=== PATIENT | female | born 1965 | race Caucasian/White ===

== ENCOUNTER → 2023-03-27 | Outpatient (CLI) | payer OTHER, SELFPAY ==
--- OUTSIDE RECORDS SUMMARY | 2023-03-27 07:25 | XMS RPT_ITS | CCD ---
Author Name Unknown Address [address] [place] [address] Organization [facility] Care Team Providers Care Auto Mechanic Apprentice Name Role Phone Lowell ISBELL, Jovi Gaitan Primary Care Provider JOVI ETIENNE Primary Care Unavailable ELIZABETH SOLANO MD, Jovi Gaitan Primary Care Provider Allergies Allergy Classification Reported Allergen(s) Allergy Type Date of Onset Reaction(s) Facility (4 sources) cefdinir; Translations: [CEFDINIR] Drug Allergy 04-05-2011 [facility] Work Phone: (4 sources) Ibuprofen; Translations: [IBUPROFEN] Drug Allergy 11-12-2004 [facility] Work Phone: Medications Completed/Discontinued Medications Medication Drug Class(es) Dates Sig (Normalized) Sig (Original) Lactobacillus acidophilus (3 sources) Lactobacillus acidophilus (PROBIOTIC ORAL) Take by mouth. 0 Active Problems Problem Classification Problem Date Documented Da te Episodic/Chronic Menopausal disorders (1 source) Menopausal flushing; Translations: [Menopausal and female climacteric states] Chronic Other nutritional; endocrine; and metabolic disorders (1 source) Obesity; Translations: [Obesity, unspecified] Chronic Other nutritional; endocrine; and metabolic disorders (3 sources) Obese class I; Translations: [Obesity, unspecified] Onset: 09-09-2021 09-09-2021 Chronic Other screening for suspected conditions (not mental disorders or infectious disease) (6 sources) Breast finding ; Translations: [Inconclusive mammogram] Onset: 09-22-2022 Episodic Results Test Name Value Interpretation Reference Range Facil ity Vital Signs Date Time Vital Sign Value Performing Clinician Faci lity 09-09-2021 07:46-0400 Body height 165.1 cm Elizabeth Solano APRN.CNP Work Phone: [facility] 09-09-2021 07:46-0400 Body weight 86.73 kg Elizabeth Solano APRN.CNP Work Phone: [facility] 09-09-2021 07:46-0400 Diastolic blood pressure 64 mm[Hg] Elizabeth Solano APRN.SPECIALTY TRIMMER Work Phone: [facility] 09-09-2021 07:46-0400 Systolic blood pressure 100 mm[Hg] Elizabeth Solano APRN.SPECIALTY TRIMMER Work Phone: [facility] Encounters Encounter Date Encounter Type Care Provider Facility Start: 09-22-2022 Documentation procedure Mammog rosalinda Coordinator [facility] Start: 09-22-2022 Letter encounter Mammography Coordinator [facility] Department Start: 09-22-2022 End: 09-22-2022 ambulatory JOVI ETIENNE Facility:[facility] Start: 09-22-2022 End: 09-22-2022 Subsequent hospital visit by physician Screen Mammo [facility] Mammogram Procedures Date Procedure Procedure Detail Performing Clinician Start: 09-22-2022 End: 09-22-2022 Mammography Elizabeth Solano APRN.CNP Work Phone: Start: 09-01-2021 Mammography Elizabeth szymanski APRN.CNP Work Phone: Plan of Treatment Date Care Activity Detail Author Start: 09-23-2023 Mammography [facility] Start: 10-28-2022 Influenza vaccination [facility] Start: 09-01-2022 Mammography MAMMOGRAM [facility] Start: 02-27-2022 DEPRESSION ASSESSMENT DEPRESSION ASSESSMENT [facility] Start: 10-28-2021 Influenza vaccination INFLUENZA (#1) [facility] Start: 2014 SHINGRIX VACCINE (1 of 2) SHINGRIX VACCINE (1 of 2) [facility] Start: 2009 COLOGUARD (FIT-DNA) COLOGUARD (FIT-DNA) [facility] Start: 2009 Colonoscopy COLONOSCOPY [facility] Start: 2009 COLORECTAL CANCER SCREENING COLORECTAL CANCER SCREENING [facility] Start: [address] COLONOGRAPHY [facility] Start: 2009 DIABETES SCREEN DIABETES SCREEN [facility] Start: 2009 Diabetes Screening Diabetes Screening [facility] Start: 2009 FECAL OCCULT BLOOD FECAL OCCULT BLOOD [facility] Start: 2009 Lipid 1996 panel - Serum or Plasma Lipid Screening [facility] Start: 2009 LIPID SCREEN LIPID SCREEN [facility] Start: 2009 SIGMOIDOSCOPY SIGMOIDOSCOPY [facility] Start: 08-01-2007 Hepatitis B Vaccine (2 of 3 - 19+ 3-dose series) Hepatitis B Vaccine (2 of 3 - 19+ 3-dose series) [facility] Start: 1983 Urine microalbumin profile [facility] Start: 1982 HEPATITIS C SCREENING HEPATITIS C SCREENING [facility] Start: 1982 HIV SCREENING HIV SCREENING [facility] Start: 1976 Adult depression screening assessment DEPRESSION SCREENING [facility] Start: 1964 COVID-19 VACCINE (#1) COVID-19 VACCINE (#1) [facility] Start: 1964 HEPATITIS B (1 of 3 - 3-dose series) HEPATITIS B (1 of 3 - 3-dose series) [facility] End: 10-09-2022 CHANDNI SCREENING W AVA CHANDNI SCREENING W AVA Radiology Routine Dense breast tissue Encounter for screening mammogram for malignant neoplasm of breast 1 Occurrences starting 09/09/2021 until 10/09/2022 [facility] Work Phone: Payers Date Payer Category Payer Unknown MMO MMO [employer] [id number] 2017-Present [phone] [address] [place] [address] PPO [id number] 2017 Unknown MMO MMO [employer] PPO [id number] 2017-Present [phone] [address] [place] [address] PPO [id number] 2017 Unknown [id number] Social History Date Type Detail Facility Start: 01-10-2012 Tobacco smoking status NHIS Ex-smoker [facility] Work Phone: End: 09-02-2008 History of tobacco use Current smoker [facility] End: 09-02-2008 History of tobacco use Cigarette Smoker [facility] Start: 09-09-2021 Alcohol intake Current drinker of alcohol (finding) [facility] Start: 11-15-2018 History SDOH Alcohol Comment Occasionally [facility] Start: 11-19-2019 History SDOH Social Connections Phone 5 [facility] Start: 11-19-2019 History SDOH Social Connections Get Together 2 [facility] Start: 11-19-2019 History SDOH Social Connections [employer] 3 [facility] Start: 11-19-2019 History SDOH Social Connections Membership 1 [facility] Start: 11-19-2019 History SDOH Physical Activity MPS 6 [facility] Start: 11-19-2019 Education 21 [facility] Start: 04-02-2008 Tobacco Comment 4 cigs per day [facility] Start: 1965 Sex Assigned At Female [facility] Start: 08-30-2021 End: 09-09-2021 Exposure to SARS-CoV-2 (event) Not sure [facility] Work Phone: Start: 01-10-2012 End: 02-03-2020 Cigarettes smoked current (pack per day) - Reported 0.5 [facility] Work Phone: Start: 01-10-2012 Tobacco use and exposure Smokeless tobacco non-user [facility] Start: 11-19-2019 End: 02-03-2020 Social connection and isolation panel [facility] Work Phone: Do you belong to any clubs or organizations such as sabianist groups, unions, fraternal or athletic groups, or school groups? Yes [facility] Work Phone: Are you now , , , , never or living with a partner? [facility] Work Phone: How hard is it for y ou to pay for the very basics like food, housing, medical care, and heating Not hard at all [facility] Work Phone: Do you feel stress - tense, restless, nervous, or anxious, or unable to sleep at night because your mind is troubled all the time - these days [OSQ] To some extent [facility] Work Phone: (I/We) worried wheth er (my/our) food would run out before (I/we) got money to buy more. Never true [facility] Work Phone: Start: 08-27-2021 Gender identity Identifies as female gender (finding) [facility] Start: 08-27-2021 Sexual orientation Heterosexual (finding) [facility] Clinical Notes 12-15-2008 to 09-22-2022 Letter - Coordinator, Mammography - 09/22/2022 2:18 PM Tia Carr Mammo Tech - 09/22/2022 7:30 AM EDTPatient InstructionsElizabeth Solano APRN.SPECIALTY TRIMMER - 09/09/2021 7:45 AM EDT Note Date & Type Note Facility 09-22-2022 Miscellaneous Notes September 26, 2022 PID: [id number] Denia Domingo [address] [place] [address] Dear Ms. Domingo, We are pleased to inform you that the results of your recent breast imaging exam on 09/22/2022 are normal. Your mammogram demonstrates that you have dense breast tissue, which could hide abnormalities. Dense breast tissue, in and of itself, is a relatively common condition. Therefore, this information is not provided to cause undue concern; rather, it is to raise your awareness and promote discussion with your health care provider regarding the presence of dense breast tissue in addition to other risk factors. Early detection of cancer is very important. We also understand recommendations regarding breast cancer screening are controversial. Please discuss with your primary care provider which strategy is best for you and whether a mammogram is right for you. Your imaging studies and report will be kept on file at [facility] as part of your permanent medical record and are available for your continuing care. Thank you for allowing us to help in meeting your health care needs. Sincerely, Dr. Overton Interpreting Radiologist [facility] (Normal over 40) documented in this encounter [facility] 09-22-2022 Note HNO ID: [id number] Author: Tia Stevenson Mammo Tech Service: ? Author Type: Cloth Picker Type: Progress Notes Filed: 09/22/2022 8:02 AM Note Text: Radiology Service Progress Note PATIENT NAME: Denia Domingo DATE OF SERVICE: September 22, 2022 TIME: 7:39 AM PATIENT IDENTITY VERIFICATION COMPLETED USING TWO (2) IDENTIFIERS: Name and Date of confirmed by patient verbally. FALL SCREENING: Has the patient had 2 falls in the last year or 1 fall with injury or currently using an Ambulatory Assistive Device (Walker, Cane, Wheelchair, Crutches, etc.)? No PATIENT GENDER DATA: Female. status: : No status: NO. PATIENT RELEVANT IMPLANT DATA REVIEWED: Not Applicable RADIOLOGY DEPARTMENT: Mammography PERIPHERAL IV DATA: Not applicable SIGNED BY: Vargas Garrett September 22, 2022 7:39 AM [facility] 09-22-2022 History of Presen t illness Narrative Radiology Service Progress Note PATIENT NAME: Denia Domingo DATE OF SERVICE: September 22, 2022 TIME: 7:39 AM PATIENT IDENTITY VERIFICATION COMPLETED USING TWO (2) IDENTIFIERS: Name and Date of confirmed by patient verbally. FALL SCREENING: Has the patient had 2 falls in the last year or 1 fall with injury or currently using an Ambulatory Assistive Device (Walker, Cane, Wheelchair, Crutches, etc.)? No PATIENT GENDER DATA: Female. status: : No status: NO. PATIENT RELEVANT IMPLANT DATA REVIEWED: Not Applicable RADIOLOGY DEPARTMENT: Mammography PERIPHERAL IV DATA: Not applicable SIGNED BY: Vargas Garrett September 22, 2022 7:39 AM documented in this encounter [facility] 09-09-2021 Instructions Elizabeth Solano APRN.[facility] - 09/09/2021 8:12 AM EDT Menopause Symptoms Not all women experiences menopause in the same way. For some, menopause can bring on an array of uncomfortable symptoms. Others may experience few if any discomforts. This information has been prepared to help you manage the most common changes associated with the midlife transition. RELIEVING HOT FLASHES * Identify and avoid your hot flash triggers. Common triggers may include stress, caffeine, alcohol, spicy foods, tight clothing, heat and cigarette smoke. * Keep the bedroom cool. Use fans during the day. Wear light layers of clothes with natural fibers. * Try deep, slow abdominal paced breathing (6 to 8 breaths per minute). Practice deep breathing for 15 minutes in the morning, 15 minutes in the evening and at the onset of hot flashes. * Exercise daily. Walking, swimming, dancing and bicycling with helmet are good choices along with yoga. * Add soy protein in the form of food (40-60 mg) to your diet daily in place of animal protein. Promensil and isoflavone tablets have NOT been shown to significantly help menopausal symptoms * Black cohosh (in the form of Remifemin) can be used for hot flashes and has been approved by [place] Commission E for only 6 months of use, however has NOT been well studied in the [place] for lobsterman effects and THERE HAVE BEEN REPORTS OF LIVER TOXICITY WITH BLACK COHOSH USE. (Avoid kava kava, valerian root and beware that most herbal products are NOT regulated in the [place] and some have been associated with liver toxicity) NOTE: HORMONE THERAPY (HT) is the MOST EFFECTIVE treatment and the only FDA approved treatment for menopausal symptoms. Any form of hormones, including 'bioidentical' hormones have risks as well as benefits. * Antidepressants like Effexor (venlaflaxine) a NSRI or Pristiq (desvenlafaxine) another agent, Neurontin (gabapentin) may help block hot flashes and all have risks and benefits like any prescription or off the shelf medicine. * Use of Bellergal is discouraged as it contains an addictive barbiturate. RELIEVING INSOMNIA * Keep the bedroom cool to prevent night sweats. Special chill pillows that are cool are available. * Avoid using sleeping pills. * Exercise daily but not right before bedtime. * Avoid caffeine and alcohol at night. * Take a warm shower at bedtime. COPING WITH MOOD SWINGS, FEARS AND DEPRESSION * Find a self-calming skill to practice, such as yoga, meditation or slow deep breathing. * Avoid tranquilizers, if possible, however prescription anti-depressants can be very effective. * Engage in a creative outlet that fosters a sense of achievement. * Stay connected with your family and community; nurture your friendships. RELIEVING PAINFUL INTERCOURSE * Try using a vaginal water-based moisturizing lotion 3 times a week (like Replens or SILK-E) or lubricant during intercourse like KY jelly or Astroglide. *Local estrogen treatments for the vagina/bladder are available as a cream, tablet or vaginal ring. HELPFUL WEB SITES www.menopause.org www.[facility].org/womenshe alth Calcium and Vitamin D Supplementation (from the National Institutes of Health Office of Dietary Supplements 2011) Calcium 1200 mg daily - 600 mg twice a day if taking supplement and Vit D 800-1000 IU daily Calcium is required by the body for blood vessel, muscle, hormone and nerve functioning. Most of the body's calcium is stored in the bones and teeth where it supports structure and function. Bone is continuously broken down and reformed. When bone breakdown exceeds formation, especially in postmenopausal women, bone loss can increase the risk of osteoporosis and fractures. In addition to low calcium intake, women who smoke, have a family history of osteoporosis, are thin, or , or who take certain medications such as cancer chemotherapy, seizure mediations and steroids are at increased risk of osteoporosis. The calcium requirements in women change with age. The National Institutes of Health (NIH) recommends: 1000mg elemental calcium for premenopausal women age 19-50 1200mg elemental calcium for postmenopausal women and all women over 50 Milk, yogurt, and cheese are rich natural sources of calcium and are the major food contributors in the [place]. For example, 8oz of milk (whole, lowfat or skim) contains about 300mg calcium, 8oz of yogurt contains 415mg. Nondairy sources include salmon and sardines and vegetables, such as English cabbage, kale, and broccoli. Foods fortified with calcium include many fruit juices, tofu and cereals. For more food calcium content information, visit http://ods.od.nih.gov/factsheets /calcium. Calcium supplements come in several different forms. Remember that the recommendations are for millgrams (mg) of elemental calcium which may be less than the total weight of the supplement. The amount of elemental calcium is required to be printed on the label. Calcium carbonate is the least expensive form. It must be taken on a full stomach to be properly absorbed. Some patients may experience gas or constipation. Calcium phosphate and calcium citrate may be taken either with or without food and tend to have less side effects but are generally more expensive. Because of its ability to neutralize stomach acid, calcium carbonate is found in some [id number] antacid products, such as Tums and Rolaids . Depending on its strength, each chewable pill or softchew provides 200 to 400 mg of elemental calcium. The percentage of calcium absorbed depends on the total amount of elemental calcium consumed at one time. Absorption is highest in doses <500mg. So a woman who takes 1,000mg/day of calcium from supplements should split the dose and take 500mg at two separate times during the day. Too much calcium can cause kidney stones, constipation, difficulty absorbing other nutrients and calcium buildup in blood vessels. Women under 50 should not exceed 2500mg/day (2000mg/day for women over 50) of calcium from food and supplements. Excessive alcohol and caffeine intake can inhibit absorption of calcium. Calcium can reduce the absorption of some medications if taken at the same time of day (bisphosphonates, thyroid medication, Phenytoin and other seizure medications, some antibiotics and iron supplements). Vitamin D promotes calcium absorption in the gut and maintains adequate blood levels of calcium and phosphate for normal bone growth and bone remodeling. Vitamin D also helps regulate cell growth as well as nerve, muscle and immune system function. Vitamin D is produced in the skin as a result of ultraviolet sunlight rays and must be altered in the liver and kidney to become its active form. Recommended intake according to the National Institutes of Health is 600 International Units (IU) for girls and women ages 1-70 and 800 IU for women over 70. Very few foods in nature contain vitamin D. The flesh of fatty fish (such as salmon, tuna, and mackerel) and fish liver oils are among the best sources. Small amounts of vitamin D are found in beef liver, cheese, mushrooms and egg yolks. Most people meet at least some of their vitamin D needs through exposure to sunlight. Season, time of day, length of day, cloud cover, smog, skin melanin content, and sunscreen are among the factors that affect UV radiation exposure and vitamin D synthesis. Despite the importance of the sun for vitamin D synthesis, it is prudent to limit exposure of skin to sunlight and avoid tanning beds. UV radiation is a carcinogen responsible for most of the estimated 1.5 million skin cancers that occur annually in the [place]. Lifetime cumulative UV damage to skin is also responsible for some age-associated dryness and other cosmetic changes. In supplements and fortified foods, vitamin D is available in two forms, D2 (ergocalciferol) and D3 (cholecalciferol). The two are equivalent at normal supplement doses. For women who require high supplement doses because of vitamin D deficiency, D3 may work better to raise blood levels. Some medications can prevent proper absorption of Vitamin D. These include laxatives, corticosteroids like prednisone, the seizure drugs phenobarbital and phenytoin, the weight-loss drug orlistat ( Xenical and AlliTM) and the cholesterol-lowering drug cholestyramine (Questran , LoCholest , and Prevalite ). Talk to your doctor about adjusting your recommended daily vitamin D dosage if you take these medications. You should not exceed 4000 mg of vitamin D supplementation daily unless specifically prescribed by your doctor. documented in this encounter [facility] 09-09-2021 History of Presen t illness Narrative Sofie is a 56 year old who presents for an annual gynecologic exam without complaints. Did not feel well and had nightmares with Lexapro trial for hot flashes. Takes one Advil PM at bedtime. Frustrated with weight - has gained 5 lbs in last visit 2 years ago and has increased size of belly. Postmenopausal: TVH - ovaries remain HRT use: No. History of abnormal pap: No Last mammogram: 2021 normal History of abnormal mammogram: No Sexually active: No Hot flashes: Yes Trigger if she eats too much sugar. Night sweats: Yes, 3-4/week Nutrition: Plexxus in the morning, tries to eat healthy diet Activity: not much , tries to walk Documentation from previous visit of 11/19/2019 was copied and pasted, documentation has been reviewed and edited as necessary for today's visit. OB History T2 L2 SAB0 IAB0 Ectopic0 Multiple0 Live Births0 Radio Interference Investigator History LMP: 08/29/2008, Hysterectomy Age at Menarche: Age at First : Age at Menopause: Radio Interference Investigator History Comments: Sexual Activity: Not Currently; Male Contraception: PAST MEDICAL HISTORY Diagnosis Date Excessive or frequent menstruation Heavy periods PAST SURGICAL HISTORY Procedure Laterality Date PAST SURGICAL HISTORY OF RIGHT BREAST LYMPH NODES REMOVED VAGINAL HYSTERECTOMY UTERUS 250 GM/< 09/02/08 TVH for metromenorrhagia FAMILY HISTORY Problem Relation Age of Onset Bipolar disorder Mother Diabetes Mother Borderline other (Rheumatoid Arthritis) Mother other (IBS) Mother other (Crohn's Disease) Mother Coronary Artery Disease Father other (Cancer, lungs) Father smoker No Known Problems Brother Coronary Artery Disease Paternal Grandmother Coronary Artery Disease Paternal Grandfather No Known Problems Daughter No Known Problems Son SOCIAL HISTORY Social History Tobacco Use Smoking status: Former Smoker Packs/day: 0.50 Years: 1.00 Pack years: 0.50 Types: Cigarettes Quit date: 09/02/2008 Years since quittin.0 Smokeless tobacco: Never Used Tobacco comment: 4 cigs per day Vaping Use Vaping Use: Never used Substance Use Topics Alcohol use: Yes Comment: Occasionally Drug use: No REVIEW OF SYSTEMS Abdomen: No abdominal pain, nausea, vomiting, diarrhea, or constipation. No bloating, early satiety, indigestion, or increased flatulence. Bladder: No dysuria, gross hematuria, urinary frequency, urinary urgency, or incontinence Breast: No breast lumps, nipple d/c, overlying skin changes, redness or skin retraction Allergies and current medication updated:Yes EXAM: BP 100/64 Ht 5' 5 (1.65m) Wt 191 lb 3.2 oz (86.7kg) LMP 08/29/2008 BMI 31.82 kg/(m^2). GENERAL: pleasant, female in no apparent distress HEENT: Normocephalic, atraumatic, mucus membranes moist and no lesions NECK: Supple, full range of motion, no adenopathy and thyroid normal DERMATOLOGY: Normal, without lesions, non-icteric and non-hirsute BREAST: soft, non-tender, symmetric, no dominant mass, normal nipple-areolar complex, no lymphadenopathy and no nipple discharge CHEST: Normal inspiratory effort ABDOMEN: soft, non-tender and no masses PELVIC: external genitalia normal, normal Bartholin's glands, urethra, [place]'s glands, no vulvar lesions, physiologic discharge present, normal appearing perineal body and perianal region, cervix surgically absent. Visible green suture per her usual. BIMANUAL: no adnexal masses, non-tender and uterus surgically absent RECTOVAGINAL: deferred. NEURO: alert and oriented x3,exam grossly non-focal EXTREMITIES: normal ASSESSMENT/PLAN: 1) Health maintenance: Pap/HPV screening no longer needed Mammogram ordered Mammogram up to date Nutrition, exercise and routine health maintenance exams reviewed. Calcium/Vitamin D supplementation information provided. Colon cancer screening: Cologuard up to date Hot flashes - discussed options. Tried escitalopram but had nightmares. Not interested in HRT. Given written information for management. 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 10/12/2015 Nontraumatic rupture of othe r tendons of foot and ankle 12/15/2008 10/12/2015 Sprain of ankle, unspecified site 12/01/2008 10/12/2015 Other enthesopathy of ankle and tarsus 12/01/2008 10/12/2015 Calcaneal spur 12/01/2008 10/12/2015 Polyp of corpus uteri 04/02/20082008 Metrorrhagia 04/02/2008 10/17/2008 Excessive or frequent menstruation 04/02/2008 10/17/2008 Pain in joint, forearm 03/23/200710/11 documented as of this encounter (statuses as of 09/27/2022) [facility]2009 History of Past illness Narrative* Problem Noted Date Diagnosed Date Resolved Date Plantar fascial 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 10/12/2015 Nontraumatic rupture of othe r tendons of foot and ankle 12/15/2008 10/12/2015 Sprain of ankle, unspecified site 12/01/2008 10/12/2015 Other enthesopathy of ankle and tarsus 12/01/2008 10/12/2015 Calcaneal spur 12/01/2008 10/12/2015 Polyp of corpus uteri 04/02/20082008 Metrorrhagia 04/02/2008 10/17/2008 Excessive or frequent menstruation 04/02/2008 10/17/2008 Pain in joint, forearm 03/23/200710/11 documented as of this encounter (statuses as of 01/01/2023) [facility] note* Diagnosis Encounter for gynecological examination (general) (routine) without abnormal findings- Primary Hot flashes, menopausal Symptomatic menopausal or female climacteric states Dense breast tissue Encounter for screening mammogram for malignant neoplasm of breast Other screening mammogram Obesity without serious comorbidity, unspecified classification, unspecified obesity type documented in this encounter [facility] note* Diagnosis Dense breast tissue Encounter for screening mammogram for malignant neoplasm of breast Other screening mammogram documented in this encounter [facility] for referral (narrative)* Diagnostic Procedure Only (Routine) - Pending Review Specialty Diagnoses / Procedures Referred By Damaris rawls Referred To Contact [facility] Diagnoses Dense breast tissue Encounter for screening mammogram for malignant neoplasm of breast Procedures CHANDNI SCREENING W AVA SCREENING DIGITAL BREAST TOMOSYNTHESIS BI SCREENING MAMMOGRAPHY BI 2-VIEW BREAST INC Elizabeth Kingsley APRN.CNP [address] [place] [address] [facility] [address] [place] [address] Referral ID Status Reason Start Date Expiration Date Visits Requested Visits Authorized [id number] Pending Review Auto-Generat ed Referral 09/09/2021 10/09/2022 1 1 [facility] for referral (narrative)* Diagnostic Procedure Only (Routine) - Closed Specialty Diagnoses / Procedures Referred By Damaris rawls Referred To Contact [facility] Diagnoses Dense breast tissue Encounter for screening mammogram for malignant neoplasm of breast Procedures CHANDNI SCREENING W AVA SCREENING DIGITAL BREAST TOMOSYNTHESIS BI SCREENING MAMMOGRAPHY BI 2-VIEW BREAST INC Elizabeth Kingsley APRN.CNP [address] [place] [address] [facility] [address] [place] [address] Referral ID Status Reason Start Date Expiration Date V isits Requested Visits Authorized [id number] Closed Auto-Generate d Referral 09/09/2021 10/09/2022 1 1 [facility]* Diagnostic Procedure Only (Routine) - Closed Specialty Diagnoses / Procedures Referred By Damaris rawls Referred To Contact [facility] Diagnoses Dense breast tissue Encounter for screening mammogram for malignant neoplasm of breast Procedures CHANDNI SCREENING W AVA SCREENING DIGITAL BREAST TOMOSYNTHESIS BI SCREENING MAMMOGRAPHY BI 2-VIEW BREAST INC Elizabeth Kingsley APRN.SPECIALTY TRIMMER [address] [place] [address] [facility] [address] [place] [address] Referral ID Status Reason Start Date Expiration Date V isits Requested Visits Authorized [id number] Closed Auto-Generate d Referral 09/09/2021 10/09/2022 1 1 [facility] Summary Purpose Family History No Family History Records Found Advance Directives No Advanced Directives Records Found Additional Source Comments Source Comments (unrecognize d section and content) In the event this informatio n is protected by the Federal Confidentiality of Alcohol and Drug Abuse Patient Records regulations: The Federal rules restrict any use of the information to criminally investigate or prosecute any alcohol or drug abuse patient.[facility] event this information is protected by the Federal Confidentiality of Alcohol and Drug Abuse Patient Records regulations: The Federal rules restrict any use of the information to criminally investigate or prosecute any alcohol or drug abuse patient.[facility] event this information is protected by the Federal Confidentiality of Alcohol and Drug Abuse Patient Records regulations: The Federal rules restrict any use of the information to criminally investigate or prosecute any alcohol or drug abuse patient.[facility] Reason for Visit (unrecogniz ed section and content) Care Teams (unrecognized sec tion and content) Auto Mechanic Apprentice Relationship Specialty Start Date End Date Jovi Etienne MD PCP - General 01/14/09 Auto Mechanic Apprentice Relationship Specialty Start Date End Date Jovi Etienne MD PCP - General 01/14/09 INFORMATION SOURCE (unrecogn ized section and content) FOR RECORDS PERTAINING TO PATIENTS WHO ARE OR HAVE BEEN ENROLLED IN A CHEMICAL DEPENDENCY/SUBSTANCEABUSE PROGRAM, SOME INFORMATION MAY BE OMITTED. This clinical summary was aggregated from multiple sources. Caution should be exercised in using it in the provision of clinical care. This summary normalizes information from multiple sources, and as a consequence, information in this document may materially change the coding, format and clinical context of patient data. In addition, data may be omitted in some cases. CLINICAL DECISIONS SHOULD BE BASED ON THE PRIMARY CLINICAL RECORDS. [facility] [employer] [facility]. provides no warranty or guarantee of the accuracy or completeness of information in this document.
[2023-03-27 10:33] LABS: Absolute Lymphocyte Count 2.99 X10^3/uL (0.83-4.51); Absolute Neutrophil Count 5.1 X10^3/uL (2.0-7.7); Basophil# 0.08 X10^3/uL; Basophil% 0.9 % (0-1); Eosinophil# 0.31 X10^3/uL; Eosinophils% 3.3 % (0-5); Hematocrit 42.4 % (37-47); Hemoglobin 13.8 g/dL (12.0-15.0); Lymphocyte # 2.99 X10^3/ul (0.83-4.51); Lymphocyte % 32.2 % (19-41); Mean Corp Hgb Conc 32.5 g/dL (32-36); Mean Corpuscular Hgb 30.8 pg (27.0-32.0); Mean Corpuscular Volume 94.6 fL (81-99); Mean Platelet Vol. 11.5 fl (6.2-12.0); Monocyte# 0.77 X10^3/uL; Monocyte% 8.3 % (0-10); NRBC Flagged by Analyzer 0 % (0-5); Neutrophil % 54.8 % (47-70); Platelet Count 265 K/mm3 (150-450); RBC Distribution Width CV 12.2 % (11.6-14.6); RBC Distribution Width SD 42.5 fl (35.1-43.9); Red Blood Count 4.48 M/mm3 (4.2-5.4); White Blood Count 9.3 K/mm3 (4.4-11.0)
[2023-03-27 11:27] LABS: ALB/GLOB Ratio 1.1 RATIO (0.9-2.4); AST(SGOT) 20 U/L (15-37); Alanine Aminotransfer ALT/SGPT 30 U/L (13-56); Albumin, Serum 3.7 g/dL (3.2-5.0); Alkaline Phosphatase 55 U/L (45-117); Anion Gap 4 (5-15); BUN 21 mg/dL (7-18); Calcium,Total 9.2 mg/dL (8.5-10.1); Chloride 110 mmol/L (98-107); Cholesterol 268 mg/dL (200); Creatinine, Serum 0.78 mg/dL (0.55-1.02); EST Glomerular Filtration Rate 80 mL/min (>60); Est Glom Filt Rate - Afr Amer 97 mL/min (>60); Globulin 3.4 g/dL (2.2-4.2); Glucose 101 mg/dL (74-106); High Density Lipoprotein 55 mg/dL; Potassium 4.1 mmol/L (3.5-5.1); Protein, Total 7.1 g/dL (6.4-8.2); Sodium Level 139 mmol/L (136-145); Triglycerides 123 mg/dL; Very Low Density Lipoprotein 25 mg/dL (5-40)
== END | disposition home or self-care (01) ==
PROVIDERS: PCP Nurse Practitioner Family; Referring Provider Nurse Practitioner Family; Visit Provider Nurse Practitioner Family
DX: Z00.00 Encounter for general adult medical examination without abnormal findings (principal)
CPT/HCPCS: 36415; 80053; 80061; 85025

== ENCOUNTER 2023-05-29 06:07 | Day surgery (SDC) | payer OTHER, SELFPAY ==
--- NOTE | 2023-05-29 | COLBX_PTH ---
PATIENT: GUILLE CARMONA LOC: EN U#:[id number] AGE/SX: 58/F ROOM: RE05/29/[address]: Dr. Ghislaine Duron MD : 1965 BED: DIS: 05/29/2023 SPEC #: [id number] RECD: 05/29/23 12:57 STATUS: TENISHA DEBRA #: [id number] KENDRICK: 05/29/23 00:[address]: Ghislaine Duron DEPT: SURGICAL PATHOLOGY RECD BY: Jamaal Ruelas ENTERED: 05/29/23 12:57 SP TYPE: COLON BX OT DR: Karma Becerril, COIL CONNECTOR REPAIRER-C Tissues: A - Transverse colon B - Sigmoid colon biopsy Procedures: Surgery Specimen Level IV HEADER OPERATION: Colonoscopy polypectomy PRE-OP DIAGNOSIS: Positive colorectal cancer screening using Cologuard test TISSUE SUBMITTED: A- Transverse colon polyp, B- Sigmoid colon polyp MICROSCOPIC DIAGNOSIS A. Transverse colon polyp, biopsy: Fragments of hyperplastic polyp. B. Sigmoid colon polyp, biopsy: Hyperplastic polyp. / 05/30/23 MICROSCOPIC DESCRIPTION Slides are reviewed. GROSS DESCRIPTION A. Received in fixative is one container labeled with the patient's name and designated Transverse colon polyp. The specimen consists of multiple irregular fragments of light chandra soft tissue that in aggregate measure 2.0 x 0.5 x 0.1 cm. The specimen is totally submitted in one cassette. B. Received in fixative is one container labeled with the patient's name and designated Polyp sigmoid colon. one irregular fragment of light chandra soft tissue that measures 0.5 x 0.3 x 0.1 cm. The specimen is totally submitted in one cassette. MALINDA/ 05/29/2023 TC:5 CPT: 76318c6
[2023-05-29 06:34] VITALS: BP 111/94; PULSE 85; RESP 18; TEMP 36.6; O2SAT 98; BMI 31.8
[2023-05-29] MEDS: Lactated Ringers 1,000 ML 15 ML IV (06:43)
--- NOTE | 2023-05-29 07:07 | H&P.OPEN ---
HPI - General General Date of Service: 05/29/23 HPI Narrative GUILLE CARMONA, is a 58 F who presents for diagnostic colonoscopy due to positive Cologuard. Patient denies any changes since last office visit says bowel moods daily denies any blood. office visit 04/19/23 [facility] HPI: 58-year-old female presents due to positive Cologuard for diagnostic colonoscopy. Patient is never had previous colonoscopy. Patient denies any family history of colon cancer. Patient states she did have a Cologuard about 3 to 4 years ago which was negative. Patient has bowel movements daily denies any blood. Patient denies any chronic abdominal pain/nausea/vomiting/reflux. [facility] Medical History (Updated 05/25/23 @ 13:53 by Ranjith Coburn) Smoker Wears contact lenses Home Medications multivitamin 1 tab PO DAILY 05/25/23 [History Last Taken 05/28/23] Allergy/AdvReac Type Severity Reaction Status Date / Time No Known Allergies Allergy Verified 05/29/23 06:33 Surgical History (Updated 05/25/23 @ 13:53 by Ranjith Coburn) H/O lumpectomy S/P partial hysterectomy Social History Smoking Status: Current some day smoker tobacco type: cigarettes and smokeless tobacco Past Medical/Surgical History Planned Operation Planned Operative Procedure/s: COLONOSCOPY Previous Hospitalizations/Surgeries HX Hospitalizations: No Any Problems With Anesthesia: No You/Your Family Experience Fever (Hyperthermia) With Anes: No Cholinesterase deficiency: No Cardiovascular Hx of Irregular Heartbeat and/or Afib: No Hx Heart Attack: No Hx Congestive Heart Failure: No Hx Hypertension: No Hx Pacemaker: No Respiratory Hx Chronic Obstructive Pulmonary Disease (COPD): No Hx Asthma: No Hx Emphysema: No Hx Sleep Apnea: No Hx Respiratory Tract Infection/Cold (presently): No Do You Snore Loudly (louder than talking or can be heard): No Do You Often Feel Tired/ Fatigued/ Sleepy Dring Daytime?: No Has Anyone Observed You Stop Breathing During Sleep?: No Result (for STOP score): Negative Smoking Status: Current some day smoker Gastrointestinal Hx Ulcer: No Neurological Hx Seizures: No Hx Head/Neck Injury: No Hx Headaches: No Hx Back Injury/Pain: Yes Does patient have nerve stimulator: No Reproduction : No Miscellaneous Recent Exposure to Contagious Disease: No Allergies No Known Allergies Allergy (Verified 05/29/23 06:33) Vital Signs Vital Signs Vital Signs: 05/29/23 06:34 05/29/23 06:34 Temperature 97.8 F Temperature Source Temporal Pulse Rate 85 Respiratory Rate 18 Respiratory Pattern Normal Blood Pressure 111/94 H Blood Pressure Mean 99 Blood Pressure Source Monitor Blood Pressure Position Semi-Fowlers Blood Pressure Location Left Arm Pulse Ox 98 Oxygen Delivery Method Room Air Weight Weight: 197 lb 1.492 oz Body Mass Index (BMI) 31.8 Physical Exam Const alert, oriented x3 and no apparent distress HEENT normocephalic and head/scalp atraumatic Resp normal respiratory effort Cardio regular rate GI soft to palpation and non-tender; Negative for non-distended Palpation: Negative for guarding Extremity no clubbing, cyanosis or edema Skin no rashes or lesions noted Neuro CN's II-XII intact bilaterally Psych mental status grossly normal Assessment & Plan Assessment/Plan (1) Positive colorectal cancer screening using Cologuard test: Surgery Risks - Colonoscopy I discussed with the patient the risks of the procedure: Yes Risks Include but are not Limited To: Risks include but are not limited to: Bleeding, perforation requiring further surgery, inability to complete colonoscopy requiring barium enema.
[2023-05-29 08:23] VITALS: BP 111/94; BP 115/71; PULSE 70; RESP 18; TEMP 36.8; O2SAT 99
--- NOTE | 2023-05-29 08:23 | OP.CCLET_ITS ---
05/29/2023 Jazz Figueroa Re : Colonoscopy procedure for Denia Domingo Dear Jone This procedure was performed on Monday, May 29, 2023. My impressions and recommendations are as follows: Impressions : - Hemorrhoids found on perianal exam. - Non-bleeding external and internal hemorrhoids. - One less than 5 mm polyp in the sigmoid colon, removed with a hot snare. Resected and retrieved. - One 7 mm polyp in the transverse colon, removed piecemeal using a cold biopsy forceps. Resected and retrieved. - The examination was otherwise normal. Recommendations : - Discharge patient to home. - Resume previous diet. - Continue present medications. - Await pathology results. - Repeat colonoscopy 2-3 years for surveillance after piecemeal polypectomy. My findings are described in the full procedure note, which is enclosed. If I can be of further assistance, please feel free to contact me at Doctor phone number(s): , Work: . Sincerely, MD Ghislaine Booth MD 05/29/2023 8:22:41 AM This report has been signed electronically.
--- NOTE | 2023-05-29 08:23 | OP.COLON_ITS ---
Patient Name: Denia Domingo Procedure Date: 05/29/2023 7:05 AM Date of : 1965 Age: 58 Procedure: Colonoscopy Indications: Positive Cologuard test Providers: Ghislaine Duron MD Referring MD: Jazz Figueroa Medicines: Monitored Anesthesia Care Patient Profile: Last Colonoscopy: none. The patient's first colonoscopy is today. Complications: No immediate complications. Procedure: Pre-Anesthesia Assessment: - Prior to the procedure, a History and Physical was performed, and patient medications and allergies were reviewed. The patient's tolerance of previous anesthesia was also reviewed. The risks and benefits of the procedure and the sedation options and risks were discussed with the patient. All questions were answered, and informed consent was obtained. Prior Anticoagulants: The patient has taken no anticoagulant or antiplatelet agents. ASA Grade Assessment: Per anesthesia. After reviewing the risks and benefits, the patient was deemed in satisfactory condition to undergo the procedure. After I obtained informed consent, the scope was passed under direct vision. Throughout the procedure, the patient's blood pressure, pulse, and oxygen saturations were monitored continuously. The colonoscope was introduced through the anus and advanced to the cecum, identified by the appendiceal orifice, ileocecal valve and palpation. The colonoscopy was performed without difficulty. The patient tolerated the procedure well. The quality of the bowel preparation was good. Scope In: 7:39:12 AM Scope Withdrawal Time 0 hours 29 minutes 49 seconds Scope Out: 8:15:34 AM Total Procedure Duration Time 0 hours 36 minutes 22 seconds Findings: Hemorrhoids were found on perianal exam. Non-bleeding external and internal hemorrhoids were found. The hemorrhoids were small and Grade I (internal hemorrhoids that do not prolapse). A less than 5 mm polyp was found in the sigmoid colon. The polyp was semi-pedunculated. The polyp was removed with a hot snare. Resection and retrieval were complete. A 7 mm polyp was found in the transverse colon. The polyp was semi-sessile. Polypectomy was attempted, initially using a hot snare. Polyp resection was incomplete with this device. This intervention then required a different device and polypectomy technique. The polyp was removed with a piecemeal technique using a cold biopsy forceps. Resection and retrieval were complete. The exam was otherwise without abnormality. Impression: - Hemorrhoids found on perianal exam. - Non-bleeding external and internal hemorrhoids. - One less than 5 mm polyp in the sigmoid colon, removed with a hot snare. Resected and retrieved. - One 7 mm polyp in the transverse colon, removed piecemeal using a cold biopsy forceps. Resected and retrieved. - The examination was otherwise normal. Recommendation: - Discharge patient to home. - Resume previous diet. - Continue present medications. - Await pathology results. - Repeat colonoscopy 2-3 years for surveillance after piecemeal polypectomy. Procedure Code(s): --- Professional --- 75929, Colonoscopy, flexible; with removal of tumor(s), polyp(s), or other lesion(s) by snare technique 18358, 59, Colonoscopy, flexible; with biopsy, single or multiple Diagnosis Code(s): --- Professional --- K64.0, First degree hemorrhoids D12.5, Benign neoplasm of sigmoid colon D12.3, Benign neoplasm of transverse colon (hepatic flexure or splenic flexure) R19.5, Other fecal abnormalities CPT copyright 2021 [employer]. All rights reserved. The codes documented in this report are preliminary and upon records clerk review may be revised to meet current compliance requirements. MD Ghislaine Booth MD 05/29/2023 8:22:41 AM This report has been signed electronically. Number of Addenda: 0 Note Initiated On: 05/29/2023 7:05 AM
[2023-05-29 08:29] VITALS: BP 111/94; BP 118/73; PULSE 69; RESP 18; O2SAT 100
[2023-05-29 08:34] VITALS: BP 111/94; BP 96/85; PULSE 67; RESP 14; O2SAT 99
[2023-05-29 08:36] VITALS: BP 110/82; BP 111/94; PULSE 61; RESP 18; TEMP 36.5; O2SAT 99
[2023-05-29 09:02] VITALS: BP 111/94
== END 2023-05-29 09:19 | disposition home or self-care (01) ==
LOC: EN 06:08 → AC 06:09
PROVIDERS: PCP Nurse Practitioner Family; Referring Provider Nurse Practitioner Family; Visit Provider Surgery
PROC: 0DJD8ZZ Inspection of Lower Intestinal Tract, Via Natural or Artificial Opening Endoscopic (ICD-10-PCS; CPT 45378; principal; 2023-05-29 07:25)
DX: Z12.11 Encounter for screening for malignant neoplasm of colon (principal); F17.210 Nicotine dependence, cigarettes, uncomplicated; K63.5 Polyp of colon; F17.220 Nicotine dependence, chewing tobacco, uncomplicated; K64.4 Residual hemorrhoidal skin tags; K64.0 First degree hemorrhoids; R19.5 Other fecal abnormalities
CPT/HCPCS: 45385; 45380; 88305; J7120; J2405